=== PATIENT | male | born 1995 | race Caucasian/White ===

== ENCOUNTER 2019-10-03 01:14 | Emergency (ER) | payer BC, SELFPAY ==
[2019-10-03] MEDS ORDERED: ONDANSETRON 4 MG/2 ML VIAL ONE (01:25)
[2019-10-03] MEDS ORDERED: MORPHINE 4 MG/ML SYR ONE (01:25)
[2019-10-03 01:54] LABS: Absolute Lymphocytes (CBC) 4.4 K/uL (0.7-4.9); Basophils % 0.7 % (0-1.3); Hematocrit 40.4 % (39.6-49.0); Lymphocytes % 42.9 % (15.3-44.8); MPV 8.1 fL (7.6-11.3); Protime INR 0.96; RBC Red Blood Cell Count 4.29 M/uL (4.33-5.43)
[2019-10-03] MEDS ORDERED: FENTANYL CITR 100 MCG/2 ML ONE (01:56)
[2019-10-03 02:04] LABS: ALT/SGPT 23 U/L (12-78); AST/SGOT 21 U/L (15-37); Albumin 4.3 g/dL (3.4-5.0); Alkaline Phosphatase 64 U/L (45-117); BUN Blood Urea Nitrogen 11 mg/dL (7-18); Bicarbonate 26 mmol/L (21-32); Bilirubin Total 0.2 mg/dL (0.2-1.0); Glucose Level 101 mg/dL (74-106); Potassium 3.5 mmol/L (3.5-5.1); Protein, Total 7.4 g/dL (6.4-8.2); Sodium Level 142 mmol/L (136-145)
[2019-10-03] MEDS ORDERED: LIDOCAINE 1% MPF 30 ML VIAL ONE (02:08)
--- NOTE | 2019-10-03 04:07 | EDPHYS ---
Physician Documentation [facility] Name: Daniel Ortiz Age: 24 yrs Sex: Male : 1995 Arrival Date: 10/03/2019 Time: 01:22 Bed 20 Private MD: ED Physician Carrington Santillan HPI: 10/03 01:27 This 24 yrs old Male presents to ER via Wheelchair with complaints of Fall jmm Injury. 01:27 Details of fall: The patient fell from a height. Onset: The symptoms/episode jmm began/occurred acutely, just prior to arrival. Associated injuries: The patient sustained injury to the head. This is a 24 year old male with no chronic medical conditions that presents to the ED with complaints of left sided headache and left foot pain following a fall which occurred just prior to arrival. Patient states he was performing an rajat on a skateboard when he lost his footing and fell to his side. Patient's friend stated he was traveling approx 10 mph when the injury occurred. States the patient momentarily lost consciousness. . Historical: - Allergies: 01:35 No Known Allergies; jd3 - Home Meds: 01:35 None [Active]; jd3 - PMHx: 01:35 None; jd3 - PSHx: 01:35 None; jd3 - Immunization history:: Adult Immunizations up to date. - Social history:: Smoking status: Patient uses tobacco products, denies chronic smoking, but will smoke occasionally, Patient uses street drugs, marijuana. - Immunization history: Last tetanus immunization: < 5 years ago. - Ebola Screening: : Patient negative for fever greater than or equal to 101.5 degrees Fahrenheit, and additional compatible Ebola Virus Disease symptoms. ROS: 01:27 Constitutional: Negative for fever, chills, and weight loss, Cardiovascular: Negative jmm for chest pain, palpitations, and edema, Respiratory: Negative for shortness of breath, cough, wheezing, and pleuritic chest pain, Abdomen/GI: Negative for abdominal pain, nausea, vomiting, diarrhea, and constipation, Back: Negative for injury and pain. 01:27 MS/extremity: Positive for pain. 01:27 Neuro: Positive for headache. 01:27 All other systems are negative. Exam: :27 ENT: Moist Mucus Membranes Neck: Trachea midline, Supple jmm 01:27 Constitutional: The patient appears alert, awake, in obvious pain. 01:27 Head/face: 3 cm laceration noted to the left scalp. 01:27 ENT: stellate laceration noted to the left external ear. 01:27 Neck: C-spine: appears grossly normal. 01:27 Chest/axilla: Inspection: normal, Palpation: is normal. 01:27 Cardiovascular: Rate: normal, Rhythm: regular, Pulses: no pulse deficits are appreciated. 01:27 Respiratory: the patient does not display signs of respiratory distress, Respirations: normal, Breath sounds: are clear throughout. 01:27 Abdomen/GI: Inspection: abdomen appears normal, Bowel sounds: normal, Palpation: abdomen is soft and non-tender, in all quadrants. 01:27 Back: pain, is absent, ROM is normal. 01:27 Musculoskeletal/extremity: ROM: intact in all extremities. 01:27 Skin: multiple lacerations noted to the left external ear and left parietal scalp. 01:27 Neuro: Orientation: appropriate for stated age, Mentation: is normal, Memory: is normal. 01:27 Psych: Behavior/mood is pleasant, cooperative. Vital Signs: 01:35 BP 146 / 93; Pulse 75; Resp 19 S; Temp 98.7(O); Pulse Ox 99% on R/A; Weight 58.97 kg jd3 (R); Height 5 ft. 7 in. (170.18 cm) (R); Pain 7/10; 02:38 Pulse 78; Resp 17 S; Pulse Ox 100% on R/A; jd3 04:12 BP 139 / 81; Pulse 76; Resp 16 S; Pulse Ox 100% on R/A; jd3 01:35 Body Mass Index 20.36 (58.97 kg, 170.18 cm) jd3 [place] Coma Score: 01:49 Eye Response: spontaneous(4). Verbal Response: oriented(5). Motor Response: obeys jd3 commands(6). Total: 15. Trauma Score (Adult): 01:49 Eye Response: spontaneous(1); Verbal Response: oriented(1); Motor Response: obeys jd3 commands(2); Systolic BP: > 89 mm Hg(4); Respiratory Rate: 10 to 29 per min(4); [place] Score: 15; Trauma Score: 12 Laceration: 03:33 Wound Repair of 5cm ( 2.0in ) subcutaneous laceration to left ear. Distal [facility] neuro/vascular/tendon intact. Anesthesia: Regional Block with 5 mls of Lido/Marcaine. Wound prep: Extensive cleansing with betadine by nurse by me. Skin closed with 11 5-0 fast absorbing gut using simple sutures and sterile technique. Dressed with pressure dressing, non-adherent dressing. Patient tolerated well. 03:33 Wound Repair of 3cm ( 1.2in ) laceration to left frontal area. Anesthesia: Local [facility] anesthetic administered with 2 mls of Lido/Marcaine. Wound prep: Moderate cleansing with betadine by nurse by me. Skin closed with 5 1-0 Valentino using staple gun. Patient tolerated well. MDM: 01:27 Patient medically screened. [facility] 04:03 Data reviewed: vital signs, nurses notes. Counseling: I had a detailed discussion with [facility] the patient and/or guardian regarding: the historical points, exam findings, and any diagnostic results supporting the discharge/admit diagnosis, radiology results, the need for outpatient follow up, to return to the emergency department if symptoms worsen or persist or if there are any questions or concerns that arise at home. ED course: patient given wound infection and head injury return precautions. patient understood and agrees with the plan of care. . 10/03 01:27 Order name: CBC with Diff; Complete Time: 02:29 [facility] 10/03 01:27 Order name: CMP; Complete Time: 02:29 [facility] 10/03 01:27 Order name: Type And Screen; Complete Time: 03:25 [facility] 10/03 01:27 Order name: Ptt, Activated; Complete Time: 02:30 [facility] 10/03 01:27 Order name: PT-INR; Complete Time: 02:30 [facility] 10/03 01:27 Order name: CT Head C Spine [facility] 10/03 01:27 Order name: Saline Lock; Complete Time: 01:30 [facility] 10/03 01:32 Order name: Foot Left 3 View XRAY [facility] 10/03 01:36 Order name: CT Facial Bones W/O Con [facility] 10/03 03:35 Order name: Wound Care; Complete Time: 04:10 [facility] 10/03 03:35 Order name: Misc. Order: leilani tape toes; Complete Time: 04:10 [facility] Administered Medications: 01:29 Drug: morphine 4 mg Route: IVP; Site: right antecubital; jd3 02:29 Follow up: Response: No adverse reaction; RASS: Alert and Calm (0) jd3 01:30 Drug: Zofran 4 mg Route: IVP; Site: right antecubital; jd3 02:30 Follow up: Response: No adverse reaction jd3 01:58 Drug: fentaNYL (PF) 25 mcg Route: IVP; Site: right antecubital; jd3 02:55 Follow up: Response: No adverse reaction; RASS: Alert and Calm (0) jd3 Disposition: 10/03/19 04:06 Discharged to Home. Impression: Skateboard accident, Unspecified injury of head, Nondisplaced fracture of distal phalanx of left great toe, Ear Laceration, Laceration without foreign body of scalp. - Condition is Stable. - Discharge Instructions: Head Injury, Adult, Facial Laceration, Toe Fracture. - Prescriptions for Cephalexin 500 mg Oral Capsule - take 1 capsule by ORAL route every 6 hours for 10 days; 40 capsule. Ultracet 37.5- 325 mg Oral Tablet - take 1 tablet by ORAL route every 6 hours - for up to 5 days; do not exceed 8 tablets per day.; 20 tablet. - Medication Reconciliation Form, Thank You Letter, Antibiotic Education, Prescription Opioid Use form. - Follow up: Private Physician; When: 2 - 3 days; Reason: Recheck today's complaints, Continuance of care, Re-evaluation by your physician. Follow up: Breonna Novak MD; When: 2 - 3 days; Reason: Recheck today's complaints, Continuance of care, Re-evaluation by your physician. Addendum: 10/05/2019 21:55 Co-signature as Attending Physician, Carrington Santillan MD I agree with the assessment and t w4 plan of care. Signatures: Dispatcher [employer] Damien Renae PA PA jmm Davies, Jonathon, RN RN Carrington Reynoso MD MD tw4 Corrections: (The following items were deleted from the chart) 10/03 04:08 04:06 10/03/2019 04:06 Discharged to Home. Impression: Skateboard accident; Unspecified mari injury of head; Nondisplaced fracture of distal phalanx of left great toe; Ear Laceration. Condition is Stable. Forms are Medication Reconciliation Form, Thank You Letter, Antibiotic Education, Prescription Opioid Use. Follow up: Private Physician; When: 2 - 3 days; Reason: Recheck today's complaints, Continuance of care, Re-evaluation by your physician. mari 04:30 04:08 10/03/2019 04:06 Discharged to Home. Impression: Skateboard accident; Unspecified jd3 injury of head; Nondisplaced fracture of distal phalanx of left great toe; Ear Laceration; Laceration without foreign body of scalp. Condition is Stable. Discharge Instructions: Head Injury, Adult, Facial Laceration, Toe Fracture. Prescriptions for Cephalexin 500 mg Oral Capsule - take 1 capsule by ORAL route every 6 hours for 10 days; 40 capsule, Ultracet 37.5-325 mg Oral Tablet - take 1 tablet by ORAL route every 6 hours - for up to 5 days; do not exceed 8 tablets per day.; 20 tablet. and Forms are Medication Reconciliation Form, Thank You Letter, Antibiotic Education, Prescription Opioid Use. Follow up: Private Physician; When: 2 - 3 days; Reason: Recheck today's complaints, Continuance of care, Re-evaluation by your physician. Follow up: Breonna Novak; When: 2 - 3 days; Reason: Recheck today's complaints, Continuance of care, Re-evaluation by your physician. mari
--- NOTE | 2019-10-03 04:07 | ER ---
Nurse's Notes [facility] Name: Daniel Ortiz Age: 24 yrs Sex: Male : 1995 Arrival Date: 10/03/2019 Time: 01:22 Bed 20 Private MD: Diagnosis: Skateboard accident;Unspecified injury of head;Nondisplaced fracture of distal phalanx of left great toe;Ear Laceration;Laceration without foreign body of scalp Presentation: 10/03 01:33 Presenting complaint: Patient states: "I was riding my skate board and I fell of and jd3 hit my head pretty hard as well as my left big toe.". Transition of care: patient was not received from another setting of care. Onset of symptoms was October 03, 2019. Risk Assessment: Do you want to hurt yourself or someone else? Patient reports no desire to harm self or others. Initial Sepsis Screen: Does the patient meet any 2 criteria? No. Patient's initial sepsis screen is negative. Does the patient have a suspected source of infection? No. Patient's initial sepsis screen is negative. Care prior to arrival: None. 01:33 Method Of Ar[facility] 01:33 Acuity: MICHELLE 2 jd3 01:47 Mechanism of Injury: Fall skate bored. Trauma event details: Injury occurred in the [address], Injury occurred: at home. Injury occurred: October 03, 2019. Trauma Activation: Alert Physician: ED Physician; Name: Dr. Santillan; Notified At: 01:40; Arrived At: 01:40 Physician: General Surgeon; Name: ; Notified At: 01:48; Arrived At: Physician: Radiology; Name: Evon; Notified At: 01:40; Arrived At: 01:40 Physician: Respiratory; Name: ; Notified At: 01:48; Arrived At: Physician: Lab; Name: ; Notified At: 01:48; Arrived At: Historical: - Allergies: 01:35 No Known Allergies; jd3 - Home Meds: 01:35 None [Active]; jd3 - PMHx: 01:35 None; jd3 - PSHx: 01:35 None; jd3 - Immunization history:: Adult Immunizations up to date. - Social history:: Smoking status: Patient uses tobacco products, denies chronic smoking, but will smoke occasionally, Patient uses street drugs, marijuana. - Immunization history: Last tetanus immunization: < 5 years ago. - Ebola Screening: : Patient negative for fever greater than or equal to 101.5 degrees Fahrenheit, and additional compatible Ebola Virus Disease symptoms. Screenin:47 Abuse screen: Denies threats or abuse. Nutritional screening: No deficits noted. jd3 Tuberculosis screening: No symptoms or risk factors identified. Fall Risk Ambulatory Aid- None/Bed Rest/Nurse Assist (0 pts). Gait- Normal/Bed Rest/Wheelchair (0 pts) Mental Status- Oriented to own ability (0 pts). Total Mahoney Fall Scale indicates No Risk (0-24 pts). Primary Survey: 01:42 NO uncontrolled hemorrhage observed. A: The patient is alert. Airway: patent, No jd3 supplemental oxygen in use on arrival. Oral cavity: clear, Trachea midline. Breathing/Chest: Respiratory pattern: regular, Respiratory effort: spontaneous, unlabored, Breath sounds: clear, bilaterally. Chest inspection: symmetrical rise and fall of the chest. Circulation: Heart tones present. Skin color: pink, Skin temperature: warm, dry. Disability Alert. Exposure/Environment: All clothing and personal items were removed. Forensic evidence collection is not deemed to be indicated at this time. Items placed in patient belonging bag. There is no evidence of uncontrolled external bleeding. Obvious injury(ies) are noted at this time: laceration noted to left ear. small amount of bleeding noted. small amount of bleeding noted from left first toe toenail. A warming method has been applied: A warm blanket has been provided to the patient. 02:45 Reassessment Airway Airway Patent Breathing/Chest Respiratory pattern Regular jd3 Respiratory effort Spontaneous Unlabored Chest inspection Symmetrical Circulation Pulses Palpable Color [place] Temperature Warm Disability Alert. Secondary Survey: 01:46 HEENT: Head No injury/deformity Face No injury/deformity Eyes: No injury or deformity jd3 noted. Ears: bleeding noted from left ear laceration noted to left ear.. Nose: clear Throat: No injury or deformity noted. Gastrointestinal: No deficits noted. : No signs and/or symptoms were reported regarding the genitourinary system. Musculoskeletal: Circulation, motion, and sensation intact. Range of motion: intact in all extremities. Assessment: 01:36 General: Appears in no apparent distress. uncomfortable, Behavior is cooperative, jd3 appropriate for age, anxious, Smells of alcohol. Pain: Complains of pain in left temporal area, left ear and Left first toenail Quality of pain is described as sharp, shooting, tender. Neuro: Level of Consciousness is awake, alert, obeys commands, Oriented to person, place, time, situation, Reports denies LOC. Denies weakness dizziness, paresthesias numbness. Cardiovascular: Capillary refill < 3 seconds Patient's skin is warm and dry. Respiratory: Airway is patent Respiratory effort is even, unlabored, Respiratory pattern is regular, symmetrical, Denies cough, shortness of breath. GI: No signs and/or symptoms were reported involving the gastrointestinal system. : No signs and/or symptoms were reported regarding the genitourinary system. EENT: laceration noted to left ear.. Derm: Skin is intact, Skin is dry, Skin is normal, Skin temperature is warm Wound noted Wound is laceration noted to top of the left side top of the head about 5cm with small amount of bleeding. laceration noted to left ear. small laceration noted to behind the right ear. Musculoskeletal: Circulation, motion, and sensation intact. Range of motion: intact in all extremities. 02:39 Reassessment: Patient appears in no apparent distress at this time. Patient and/or jd3 family updated on plan of care and expected duration. Pain level reassessed. Patient is alert, oriented x 3, equal unlabored respirations, skin warm/dry/pink. lacerations cleaned with sialine and chlorhexidine. 03:30 Reassessment: Patient appears in no apparent distress at this time. No changes from jd3 previously documented assessment. Patient and/or family updated on plan of care and expected duration. Pain level reassessed. Patient is alert, oriented x 3, equal unlabored respirations, skin warm/dry/pink. 04:15 Reassessment: Patient appears in no apparent distress at this time. Patient and/or jd3 family updated on plan of care and expected duration. Pain level reassessed. Patient is alert, oriented x 3, equal unlabored respirations, skin warm/dry/pink. Patient states feeling better. Vital Signs: 01:35 BP 146 / 93; Pulse 75; Resp 19 S; Temp 98.7(O); Pulse Ox 99% on R/A; Weight 58.97 kg jd3 (R); Height 5 ft. 7 in. (170.18 cm) (R); Pain 7/10; 02:38 Pulse 78; Resp 17 S; Pulse Ox 100% on R/A; jd3 04:12 BP 139 / 81; Pulse 76; Resp 16 S; Pulse Ox 100% on R/A; jd3 01:35 Body Mass Index 20.36 (58.97 kg, 170.18 cm) jd3 [place] Coma Score: 01:49 Eye Response: spontaneous(4). Verbal Response: oriented(5). Motor Response: obeys jd3 commands(6). Total: 15. Trauma Score (Adult): 01:49 Eye Response: spontaneous(1); Verbal Response: oriented(1); Motor Response: obeys jd3 commands(2); Systolic BP: > 89 mm Hg(4); Respiratory Rate: 10 to 29 per min(4); Sukumar Score: 15; Trauma Score: 12 ED Course: 01:22 Patient arrived in ED. jd3 01:24 Damien Chu PA is PHCP. jmm 01:24 Carrington Santillan MD is Attending Physician. jmm 01:29 Inserted saline lock: 20 gauge in right forearm, using aseptic technique. Blood oe collected. 01:34 Triage completed. jd3 01:35 Arm band placed on. jd3 01:49 Patient maintains SpO2 saturation greater than 95% on room air. jd3 01:50 Thermoregulation: warm blanket given to patient. jd3 01:50 Patient has correct armband on for positive identification. Placed in gown. Bed in low jd3 position. Call light in reach. Side rails up X2. Adult w/ patient. 01:57 Brandyn Wade, RN is Primary Nurse. jd3 02:07 CT Facial Bones W/O Con In Process Unspecified. EDMS 02:15 CT Head C Spine In Process Unspecified. EDMS 02:36 Foot Left 3 View XRAY In Process Unspecified. EDMS 03:30 Assist provider with laceration repair on left temporal area that was between 2.6 to jd3 7.5 cm using alpa. Set up tray. Performed by Damien MARTINEZ Dressed with 4X4s, Patient tolerated well. 03:30 Assist provider with laceration repair on left ear that was between 2.6 to 7.5 cm using jd3 sutures. Set up tray. Performed by Damien MARTINEZ Dressed with 4X4s, Patient tolerated well. 04:08 Breonna Novak MD is Referral Physician. [facility] 04:27 IV discontinued, intact, bleeding controlled, No redness/swelling at site. Pressure jd3 dressing applied. Administered Medications: 01:29 Drug: morphine 4 mg Route: IVP; Site: right antecubital; jd3 02:29 Follow up: Response: No adverse reaction; RASS: Alert and Calm (0) jd3 01:30 Drug: Zofran 4 mg Route: IVP; Site: right antecubital; jd3 02:30 Follow up: Response: No adverse reaction jd3 01:58 Drug: fentaNYL (PF) 25 mcg Route: IVP; Site: right antecubital; jd3 02:55 Follow up: Response: No adverse reaction; RASS: Alert and Calm (0) jd3 Intake: 04:12 PO: 0ml; Total: 0ml. jd3 Output: 04:12 Urine: 0ml; Total: 0ml. jd3 Outcome: 04:06 Discharge ordered by MD. [facility] 04:26 Discharged to home via wheelchair, with friend. jd3 04:26 Condition: stable 04:26 Discharge instructions given to patient, friend, Instructed on discharge instructions, follow up and referral plans. medication usage, Demonstrated understanding of instructions, follow-up care, medications, Prescriptions given X 2. 04:27 Patient's length of stay in the Emergency Department was greater than 2 hours. waiting jd3 for scans.Patient's length of stay extended due to 04:30 Patient left the ED. jd3 Signatures: Dispatcher [employer] EDMS Damien Chu PA PA jmm Espinosa, Orlando oe Davies, Jonathon, RN RN jd3 Corrections: (The following items were deleted from the chart) 01:59 01:33 Acuity: MICHELLE 3 jd3 jd3 02:31 01:36 Derm: Skin is intact, Skin is dry, Skin is normal, Skin temperature is warm jd3 jd3 04:30 04:11 No provider procedures requiring assistance completed. jd3 jd3
[2019-10-03 04:38] VITALS: TEMP 98.7
[2019-10-03 04:39] VITALS: O2SAT 100
[2019-10-03 04:41] VITALS: BP 139/81
--- NOTE | 2019-10-03 10:44 | RAD REPORT ---
EXAM DESCRIPTION: RAD - Foot Left 3 View - 10/03/2019 2:35 am CLINICAL HISTORY: skateboard injury COMPARISON: <Comparisons> FINDINGS: Fracture is seen involving the medial base of the distal phalanx of the great toe, extendi ng to the articular surface. Mild surrounding soft tissue swelling.
--- NOTE | 2019-10-05 13:16 | RAD REPORT ---
EXAM DESCRIPTION: Head C Spine Mpr Wo Con CLINICAL HISTORY: Head injury COMPARISON: None. TECHNIQUE: CT Head and Cervical spine WO contrast on 10/03/2019 1:27 AM SPECIAL PROGRAMS DIRECTOR This exam was performed according to our departmental dose-optimization program, which includes autom ated exposure control, adjustment of the mA and/or kV according to patient size and/or use of iterati ve reconstruction technique. FINDINGS: Brain: There is no acute hemorrhage, mass effect or midline shift. Jackson-white differentiat ion is preserved. There is no hydrocephalus. There is no significant volume loss for age. There is a left frontoparietal scalp contusion. The calvarium is intact. Orbits and globes are unremarkable. There is partial opacification of the an terior ethmoid air cells. Mastoid air cells are clear. Cervical Spine: There is no acute fracture. Alignment is anatomic. Disc spaces are maintained. Vertebral body heights are preserved. Soft tissues are unremarkable. IMPRESSION: Left scalp contusion without fracture or intracranial hemorrhage. Electronically signed by: Jens Mansfield MD 10/03/2019 2:30 AM SPECIAL PROGRAMS DIRECTOR Due to temporary technical issues with the PACS/Fluency reporting system, reports are being signed by the in house radiologist as a courtesy to ensure prompt reporting. The interpreting radiologist is f ully responsible for the content of the report.
--- NOTE | 2019-10-05 13:57 | RAD REPORT ---
EXAM DESCRIPTION: Facial Bones W/ Mpr CT MAXILLOFACIAL WITHOUT CONTRAST CLINICAL HISTORY: Head injury. COMPARISON: None. TECHNIQUE: Axial CT imaging of the facial bones and soft tissues. Reformatted coronal and sagittal images obtained. Examination was performed according to our departmental dose-optimization program, which includes aut omated exposure control, adjustment of the mA and/or kV according to patient size and/or use of itera tive reconstruction technique. FINDINGS: There is no fracture within the bony orbits, nasal bones, nasal septum, or right or left z ygoma. Intact pterygoid plates. There is no maxillary or mandible fracture. Temperamental joints are intact. Normal dentition. Intraorbital contents are unremarkable. There is moderate mucosal thickening throughout the paranasal sinuses. Small fluid level in the right sphenoid sinus. Mastoid air cells are clear bilaterally. The parapharyngeal soft tissues and mucosal spaces appear normal. Normal epiglottis and included hang nx. No prevertebral soft tissue edema. Cervical spine alignment appears normal with no upper cervical fracture. The imaged skull base is intact. There is no foreign body or subcutaneous emphysema. IMPRESSION: 1. No acute facial bone fracture. 2. Pansinus disease. Right sphenoid sinusitis. Electronically signed by: Keshia Gregory DO 10/03/2019 2:10 AM FREELANCE DIRECTOR Due to temporary technical issues with the PACS/Fluency reporting system, reports are being signed by the in house radiologist as a courtesy to ensure prompt reporting. The interpreting radiologist is f ully responsible for the content of the report.
== END 2019-10-03 04:30 | disposition home or self-care (01) ==
LOC: ER 01:14
PROC: 0HQ3XZZ Repair Left Ear Skin, External Approach (ICD-10-PCS; principal; 2019-10-03)
PROC: 0JQ00ZZ Repair Scalp Subcutaneous Tissue and Fascia, Open Approach (ICD-10-PCS; 2019-10-03)
DX: S01.01XA Laceration without foreign body of scalp, initial encounter (principal); S01.312A Laceration without foreign body of left ear, initial encounter; S92.425A Nondisplaced fracture of distal phalanx of left great toe, initial encounter for closed fracture; V00.131A Fall from skateboard, initial encounter; Z72.0 Tobacco use
CPT/HCPCS: 36415; 70450; 70486; 72125; 76377; 80053; 85025; 85610; 85730; 86850; 86900; 86901; 96374; 96375; 99284; J2405; J3010